=== PATIENT | female | born 1960 | race Caucasian/White ===

== ENCOUNTER 2024-05-04 19:46 | Emergency (ER) | payer BC, SELFPAY ==
[2024-05-04 19:51] VITALS: BP 164/92
[2024-05-04 20:18] LABS: % Basophils 0.5 % (0-2); % Immature Granulocytes 0.2 % (0-0.5); % Lymphocytes 40.4 % (20.5-51.1); % Monocytes 7.7 % (1.7-9.3); % Neutrophils 50.2 % (42.2-75.2); Absolute Basophils 0.1 10^3/uL (0-0.2); Absolute Eosinophils 0.1 10^3/uL (0-0.7); Absolute Lymphocytes 3.7 10^3/uL (1.2-3.4); Absolute Monocytes 0.7 10^3/uL (0.1-0.6); Absolute Neutrophils 4.6 10^3/uL (1.4-6.5); Hemoglobin 13.5 g/dL (12.0-16.0); Mean Corp Hgb Conc. 33.8 g/dL (33.0-37.0); Mean Corpuscular Hgb 28.9 pg (27.0-31.0); Mean Corpuscular Volume 85.7 fL (81.0-99.0); Mean Platelet Volume 9.7 fL (7.4-10.4); Nucleated Red Blood Cells % 0 %; Platelet Count 234 10^3/uL (130-400); Red Blood Cell Count 4.67 10^6/uL (4.20-5.40); Urine Albumin Negative (Neg - Trace); Urine Bilirubin Negative (Negative); Urine Character Clear (Clear); Urine Color Yellow; Urine Glucose Negative (Negative); Urine Ketone Negative (Negative); Urine Leukocyte Negative (Negative); Urine Nitrite Negative (Negative); Urine Occult Blood Negative (Negative); Urine Specific Gravity 1.005 (<1.030); Urine Urobilinogen Negative (Neg - 1+); White Blood Cell Count 9.3 10^3/uL (4.8-10.8)
[2024-05-04 21:07] VITALS: BP 153/81
[2024-05-04 21:25] LABS: ALT (SGPT) 12 U/L (0-35); AST (SGOT) 21 U/L (14-36); Albumin 3.9 g/dl (3.5-5.0); Alkaline Phosphatase 66 U/L (38-126); Blood Urea Nitrogen 19 mg/dl (7-17); Calcium 9.4 mg/dl (8.4-10.2); Carbon Dioxide 27 mmol/L (22-30); Chloride 104 mmol/L (98-107); Glucose 94 mg/dl (70-99); Potassium 3.6 mmol/L (3.5-5.1); Sodium 138 mmol/L (135-145); Total Bilirubin 0.6 mg/dl (0.2-1.3); Total Protein 6.6 g/dl (6.3-8.2); eGFR > 60.00
--- NOTE | 2024-05-04 22:16 | ED.GENMED ---
History of Present Illness
General
Chief Complaint: Abdominal Pain
Source: patient
Time Seen by Provider: 05/04/24 21:55
Nursing documentation reviewed up to this point in time: agreed with
History of Present Illness
History of Present Illness:
This a pleasant 63-year-old female who presents with lower abdominal pain. Approximately 10 days ago she saw her primary care provider, who recommended that she start nitrofurantoin. She states that the urinalysis looked clean and they did not get
cultures, so she did not start taking the antibiotic. Her symptoms worsened approximately 3 days ago so she started taking the antibiotic then. She did have ultrasound of the pelvis performed and brought the results which are scanned into the
chart. Denies fever, chills, nausea or vomiting. Reports no chest pain or shortness of breath. She is postmenopausal and has not had any vaginal bleeding or discharge. Denies previous abdominal surgeries.
Vital signs are stable. Patient not hypoxic
Nursing note reviewed. I agree with nursing documentation up to this point in time.
Home Meds and allergies reviewed.
NUMBER AND COMPLEXITY OF PROBLEMS ADDRESSED AT THE ENCOUNTER
� Chronic conditions affecting care: Atrial fibrillation, hypertension, hyperlipidemia, anxiety
, Endometrial polyp
� Acute Exacerbation and/or Progression of Chronic Illness: Endometrial polyp
� Differential Diagnosis includes: Appendicitis, diverticulitis, UTI, polyp
AMOUNT AND/OR COMPLEXITY OF DATA TO BE REVIEWED AND ANALYZED
I performed an independent evaluation of the following and my interpretation is:
EKG:
CT:
X-rays:
Ultrasound:
Laboratory Studies:
Other:
Review of other/old records: Ultrasound from 04/28/2024 at an outside hospital showed possible 9 mm endometrial polyp, interval increase in the size of the multilocular right ovarian cystic lesion
Clinical information was obtained by an independent historian:
Prescriptions/Medications Considered but not given:
Further testing considered but not performed:
RISK OF COMPLICATIONS AND/OR MORBIDITY OR MORTALITY OF PATIENT MANAGEMENT
Social determinants of health affecting care: Good Social Support
Discussion with other providers:
Escalation of care including admission/observation vs risk of discharge considered:
CRITICAL CARE NOTE:
Total Time (exclusive of procedures):
Update:
Past History
Past History
ED Past Medical History: Other (GERD, colon polyps, abdominal pain)
ED Past Surgical History: Negative Bowel resection or Cholecystectomy
Social History
Tobacco: Non-smoker
Alcohol: None
Drug: None
Personal:
Living: with family
Employment: Not employed
Review of Systems
Review of Systems
Allergies reviewed?: Yes
All Other Systems: ROS reviewed and negative except as documented in HPI and ROS
Constitutional: Reports no symptoms
EENT: Reports no symptoms
Respiratory: Reports no symptoms
Cardiac: Reports no symptoms
ABD/GI: Reports no symptoms
: Reports no symptoms
Musculoskeletal: Reports no symptoms
Skin: Reports no symptoms
Neurological: Reports no symptoms
Endocrine: Reports no symptoms
Hematologic/Lymphatic: Reports no symptoms
Psychiatric: Reports no symptoms
Phy Exam
General Physical Exam
General Presentation: well appearing and no apparent distress
General Skin: warm and dry
General Habitus: normal
General Mental: alert
General Hydration: appears well hydrated
ENT Exam
ENT Exam: EOMI, pharynx normal, neck supple and normocephalic
Eye Exam
Eye Exam: PERRL, cornea clear and conjunctiva normal
Cardiovascular Exam
Cardiovascular Exam: regular rate/rhythm, no edema, no murmur and normal peripheral pulses
Pulmonary Exam
Pulmonary Exam: lungs clear, no respiratory distress, no rales, no crackles, no rhonchi, no stridor, no wheezing and no cough
Gastrointestinal Exam
Gastrointestinal Exam: non tender, soft, no organomegaly, no pulsatile mass and non distended
Palpation: right lower quadrant: Minimal tenderness
Neurological Exam
Neurological Exam: alert, oriented x3, no motor deficits and speech normal
Musculoskeletal Exam
Musculoskeletal Exam: full ROM and no edema
Skin Exam
Skin Exam: normal color, warm/dry, no rash and no petechia
Psychiatric Exam
Psychiatric Exam: normal mood/affect
Course
Orders/Labs/Results
Orders:
Orders
05/04/24 20:07
Complete Blood Count/With Diff Urgent
Urinalysis Urgent
Date Specimen was Collected: 05/04/24
Time Specimen was Collected: 19:57
05/04/24 21:05
Comprehensive Metabolic Panel Urgent
05/04/24 22:07
CT Abd/pelvis W Iv Cont Urgent
Comment:
Reason For Exam: lower abd pain, rlq pain
05/05/24 00:42
Lisinopril [Zestril] 10 mg .ROUTE .STK-MED ONE
05/05/24 00:43
Lisinopril [Zestril] 10 mg PO NOW STA
Abnormal Lab Results
05/04/24 05/04/24
20:07 21:05
Absolute Lymphs (auto) 3.7 H 10^3/uL
(1.2-3.4)
Absolute Monos (auto) 0.7 H 10^3/uL
(0.1-0.6)
BUN 19 H mg/dl
(7-17)
05/04/24 20:07
05/04/24 21:05
Vital Signs
Initial and Last Documented VS:
Initial Vital Signs
Temp Pulse Resp BP Pulse Ox
98.7 F 62 22 164/92 96
05/04/24 19:51 05/04/24 19:51 05/04/24 19:51 05/04/24 19:51 05/04/24 19:51
Last Documented Vital Signs
Temp Pulse Resp BP Pulse Ox
98.7 F 62 22 143/67 97
05/04/24 19:51 05/04/24 19:51 05/04/24 19:51 05/05/24 01:00 05/05/24 01:00
*Critical Care Note
Total Time (30-74mins, 75-104mins- exclusive of procedures): Not Applicable
Update Note
Update Note:
Right renal cysts. No hydronephrosis or pyelonephritis. Duplicated right renal collecting system.
2 mm calcification in the right hemipelvis near the UVJ. A nonobstructing distal ureteral calculus cannot be excluded and could be considered in the appropriate clinical setting.
Unremarkable urinary bladder.
Stable tiny low-attenuation lesions in the liver.
No bowel obstruction, colitis, or diverticulitis.
3 cm right adnexal cystic lesion, slightly larger than on the prior study. Recommend follow-up with pelvic ultrasound for further characterization if this has not been previously done. Unremarkable left ovary.
Degenerative disc disease and facet arthrosis in the lower lumbar spine.
I did discuss CAT scan findings with patient. She understands that there is a possibility of a nonobstructing distal ureteral calculus. I will treat her for such. She says she did have hematuria earlier in the week. She will receive a copy of
the CAT scan on CD along with the preliminary results of the reading. Patient has an appointment with urology scheduled. She also has MRIs scheduled. Patient being discharged in improved condition.
ED Attending Note
-
Portions of this chart may have been created with voice recognition software.� Occasional wrong word or��sound alike� substitutions may have occurred due to the inherent limitations of voice recognition software.
Discharge Plan
Departure
Patient Disposition: Home (Routine Discharge)
Date of Disposition: 05/05/24
Time of Disposition: 01:08
Patient with high blood pressure during this ER visit?: Yes
Condition: Good
Discharge Problem:
Abdominal pain, Calculus, ureteral
Instructions: Kidney Stones (DC), How to Strain Your Urine, Abdominal Pain, BLOOD PRESSURE
Prescriptions:
New
tamsulosin [Flomax] 0.4 mg Capsule
0.4 mg PO DAILY Qty: 7 0RF
diclofenac sodium 75 mg tablet,delayed release (DR/EC)
75 mg PO BID Qty: 10 0RF
No Action
ciprofloxacin HCl [Cipro] 500 mg tablet
500 mg PO BID Qty: 6 0RF
metronidazole 500 mg tablet
500 mg PO TID Qty: 9 0RF
Referrals:
Benjamin Jarrell, DO [Family Provider] -
Activity Restrictions/Additional Instructions:
As discussed, you may have a kidney stone. Please keep your follow-up appointment with urology and keep the appointments for the MRI as you have previously ordered. Strain all urine. Please return to the emergency department with changing or
worsening of symptoms. [Your prescriptions were sent electronically to the pharmacy that you specified.]
It was a pleasure meeting you and taking part in your care. We hope for your continued healing and wellness.
Please read discharge instructions in their entirety. However, they are for general education and may not describe your exact diagnosis at discharge. Information on your ER visit and medical conditions were discussed with you along with appropriate
follow up information...
If indicated, please take your medications as instructed and indicated on discharge paperwork.
Please schedule a follow up appointment as directed. Call to schedule an appointment
Please return to the emergency department with ANY change in, persisting, or worsening of symptoms. If any of your symptoms do not improve, or persist, or become more severe within 6-12 hours, please return to the emergency department for further
care.
Please return to the emergency department if you develop a headache, neck pain/stiffness, fever greater than 100.4F, chest pain, shortness of breath, persistent nausea, vomiting, slurred speech, difficulty walking, numbness/tingling, weakness, signs
of infection or any other symptoms that are worrisome to you.
If you have any questions or concerns please do not hesitate to call the Hospital at or E-mail me directly at [email or web address]
Interventions
Interventions:
*Risk Screen - Suicide Last Done: 05/04/24 19:51
*General Assessment Last Done: 05/04/24 21:29
*Neglect/Abuse Screening Last Done: 05/04/24 19:51
ED- Fall Risk Assessment Last Done: 05/04/24 21:29
*ED COVID-19 Vaccine History Last Done: 05/04/24 21:29
*Nursing Disposition Last Done: 05/05/24 01:17
QW-Hcpjqp-Yfkwosfszq Assessment Last Done: 05/04/24 21:10
Discharge Date and Time
Discharge Date/Time: 05/05/24 01:17
Print Language: SINHALA
[2024-05-04 23:53] VITALS: BP 178/83
[2024-05-05] VITALS: BP 149/79
[2024-05-05 00:44] VITALS: BP 147/82
[2024-05-05] MEDS: ZESTRIL 10 MG PO (00:44)
[2024-05-05 01:00] VITALS: BP 143/67
== END 2024-05-05 01:17 | disposition home or self-care (01) ==
LOC: EMR 19:46
PROVIDERS: Emergency Medicine; EMERGENCY PHYSICIAN Student in an Organized Health Care Education/Training Program; FAMILY PHYSICIAN Family Medicine
DX: R10.30 Lower abdominal pain, unspecified (principal); N20.1 Calculus of ureter; I48.91 Unspecified atrial fibrillation; I10 Essential (primary) hypertension; E78.00 Pure hypercholesterolemia, unspecified; F41.9 Anxiety disorder, unspecified; K21.9 Gastro-esophageal reflux disease without esophagitis; Z87.19 Personal history of other diseases of the digestive system; Z90.49 Acquired absence of other specified parts of digestive tract
CPT/HCPCS: 99284; 74177; 80053; 81003; 85025; Q9967

== ENCOUNTER → 2024-07-07 06:24 | Day surgery (SDC) | payer BC, SELFPAY | LOC: GI 06:24 | PROVIDERS: ATTENDING PHYSICIAN Internal Medicine Gastroenterology | DX: R19.4 Change in bowel habit (principal); K64.8 Other hemorrhoids; K62.89 Other specified diseases of anus and rectum | CPT/HCPCS: 45330 ==

== ENCOUNTER 2025-01-09 16:44 | Emergency (ER) | payer BC, SELFPAY ==
[2025-01-09 16:55] VITALS: BP 142/81
--- NOTE | 2025-01-09 17:57 | ED.GENMED ---
History of Present Illness
General
Chief Complaint: Abdominal Pain
Source: patient
Exam Limitations: none
Time Seen by Provider: 01/09/25 17:33
History of Present Illness
History of Present Illness:
64yoF with a history of hypertension, hyperlipidemia, GERD, and 'underactive gallbladder' presenting for evaluation of abdominal pain x 1 week. She became sick about 10 days ago with flu-like symptoms and body aches. Those symptoms seemed to improve
but she started to experience sharp pain in her LUQ about a week ago. Pain radiates to the L flank. Pain is worse with eating. She was seen by her PCP last week for her symptoms and was started on azithromycin and is currently on day 01/23. Bowel
movements have been more frequent, she is having about 3 soft BMs daily. She denies any fevers, vomiting, diarrhea, constipation, dysuria, chest pain, shortness of breath, pleuritic pain.
Past History
Past History
ED Past Medical History: Other (GERD, colon polyps, abdominal pain)
ED Past Surgical History: Negative Bowel resection or Cholecystectomy
Social History
Tobacco: Non-smoker
Alcohol: None
Drug: None
Personal:
Living: with family
Employment: Not employed
Phy Exam
General Physical Exam
General Presentation: well appearing and no apparent distress
General age: appears stated age
General Skin: warm and dry
General Habitus: normal
General Mental: alert
ENT Exam
ENT Exam: normocephalic
Cardiovascular Exam
Cardiovascular Exam: regular rate/rhythm and no murmur
Pulmonary Exam
Pulmonary Exam: lungs clear, no respiratory distress, no rales, no crackles, no rhonchi and no wheezing
Gastrointestinal Exam
Gastrointestinal Exam: soft, non distended and other (+Tenderness in epigastrium and LUQ. Abdomen soft, non-distended. No rebound or guarding. No CVA tenderness. No visualized rash/skin changes.)
Neurological Exam
Neurological Exam: alert
Alvarez Coma Scale
Eye Opening: Spontaneous
Verbal Response: Oriented
Motor Response: Obeys Commands
GCS Total Score: 15
Skin Exam
Skin Exam: normal color and warm/dry
Psychiatric Exam
Psychiatric Exam: normal mood/affect
Course
Orders/Labs/Results
Orders:
Orders
01/09/25 17:56
Electrocardiogram (*1) Urgent
Reason for Study: Abdominal Pain
EKG- Treatment ONCE
0.9% Sodium Chloride 500 ml [Nss] 500 ml IV BOLUS
01/09/25 17:57
CT Abd/pelvis W Iv Cont Urgent
Comment:
Reason For Exam: LUQ pain, L flank pain
01/09/25 18:11
Complete Blood Count/With Diff Urgent
Comprehensive Metabolic Panel Urgent
Lipase Urgent
Troponin I Urgent
01/09/25 18:29
Acetaminophen [Tylenol] 1,000 mg PO NOW STA
01/09/25 18:54
Urinalysis Reflex To Culture Urgent
Date Specimen was Collected: 01/09/25
Time Specimen was Collected: 18:35
Urine Microscopic Reflex Cult Urgent
Abnormal Lab Results
01/09/25 01/09/25
18:11 18:54
Glucose 101 H mg/dl
(70-99)
Ur Occult Blood Reflex 1+ A
(Negative)
01/09/25 18:11
01/09/25 18:11
Vital Signs
Initial and Last Documented VS:
Initial Vital Signs
Temp Pulse Resp BP Pulse Ox
98.2 F 70 18 142/81 97
01/09/25 16:55 01/09/25 16:55 01/09/25 16:55 01/09/25 16:55 01/09/25 16:55
Last Documented Vital Signs
Temp Pulse Resp BP Pulse Ox
98.2 F 60 20 149/71 98
01/09/25 16:55 01/09/25 20:50 01/09/25 20:50 01/09/25 20:50 01/09/25 20:50
MDM/Problems Addressed
Differential Diagnosis Includes:
64yoF here with LUQ pain radiating to L flank x 1 week. Worse after eating. Currently on azithromycin for URI. VSS. She is well-appearing in no acute distress. No signs of peritonitis on abdominal exam. No visualized rash to suggest shingles.
Differential diagnosis includes but is not limited to: Gastritis, PUD, splenomegaly, kidney stone, pyelonephritis, colitis, nonspecific abdominal pain
Initial ED plan: Check abdominal labs, troponin/EKG, UA, and CT abdomen. IV fluid bolus.
*EKG
Interpreted by ED Provider?: Yes
EKG Intrepretation Date: 01/09/25
Heart Rate: 52
Rate: bradycardiac
Rhythm: sinus
Gonzales: normal axis
Interval: normal interval
QRS Pattern: right bundle branch block (incomplete)
Ischemia: no ischemia
*Critical Care Note
Total Time (30-74mins, 75-104mins- exclusive of procedures): Not Applicable
Update Note
Update Note:
Labs overall unremarkable including normal white count, renal function, LFTs, and lipase. UA with 1+ blood without signs of infection. Patient does report a known history of hematuria and has had multiple cystoscopies in the past which have been
normal. CT abdomen negative for acute findings. Unclear etiology of symptoms. She was encouraged to follow-up with her crime scene examiner. ED return precautions discussed. Patient in agreement with plan and was discharged in stable condition.
ED Attending Note
-
Portions of this chart may have been created with voice recognition software.� Occasional wrong word or��sound alike� substitutions may have occurred due to the inherent limitations of voice recognition software.
Discharge Plan
Departure
Patient Disposition: Home (Routine Discharge)
Date of Disposition: 01/09/25
Time of Disposition: 20:47
Patient with high blood pressure during this ER visit?: Yes
Discharge Problem:
Left upper quadrant pain
Instructions: Abdominal Pain
Prescriptions:
No Action
ciprofloxacin HCl [Cipro] 500 mg tablet
500 mg PO BID Qty: 6 0RF
metronidazole 500 mg tablet
500 mg PO TID Qty: 9 0RF
tamsulosin [Flomax] 0.4 mg Capsule
0.4 mg PO DAILY Qty: 7 0RF
diclofenac sodium 75 mg tablet,delayed release (DR/EC)
75 mg PO BID Qty: 10 0RF
Referrals:
Shy Cartwright MD [Active] -
UNKNOWN - PT DOES,NOT KNOW [Family Provider] -
Activity Restrictions/Additional Instructions:
Please follow-up with your family doctor and crime scene examiner. Return to the ER with any new or worsening symptoms.
Interventions
Interventions:
*Risk Screen - Suicide Last Done: 01/09/25 16:55
*General Assessment Last Done: 01/09/25 18:13
*Neglect/Abuse Screening Last Done: 01/09/25 16:55
*ED- Fall Risk Assessment Last Done: 01/09/25 18:13
*ED COVID-19 Vaccine History Last Done: 01/09/25 16:55
*Nursing Disposition Last Done: 01/09/25 21:06
XR-Sptlzg-Biwnnqhqej Assessment Last Done: 01/09/25 18:13
Discharge Date and Time
Discharge Date/Time: 01/09/25 21:07
Print Language: TURKISH
[2025-01-09] MEDS: NSS 500 IV (18:12)
[2025-01-09 18:21] VITALS: BP 143/67
[2025-01-09 18:22] LABS: % Basophils 0.7 % (0-2); % Immature Granulocytes 0.1 % (0-0.5); % Lymphocytes 40.9 % (20.5-51.1); % Monocytes 6.2 % (1.7-9.3); % Neutrophils 50.1 % (42.2-75.2); Absolute Basophils 0.1 10^3/uL (0-0.2); Absolute Eosinophils 0.1 10^3/uL (0-0.7); Absolute Lymphocytes 2.9 10^3/uL (1.2-3.4); Absolute Monocytes 0.4 10^3/uL (0.1-0.6); Absolute Neutrophils 3.6 10^3/uL (1.4-6.5); Hemoglobin 13.2 g/dL (12.0-16.0); Mean Corpuscular Hgb 28.3 pg (27.0-31.0); Mean Corpuscular Volume 85.8 fL (81.0-99.0); Mean Platelet Volume 9.1 fL (7.4-10.4); Nucleated Red Blood Cells % 0 %; Platelet Count 253 10^3/uL (130-400); Red Blood Cell Count 4.66 10^6/uL (4.20-5.40); White Blood Cell Count 7.1 10^3/uL (4.8-10.8)
[2025-01-09] MEDS: TYLENOL 1000 MG PO (18:31)
[2025-01-09 18:37] LABS: ALT (SGPT) 13 U/L (0-35); AST (SGOT) 24 U/L (14-36); Alkaline Phosphatase 68 U/L (38-126); Blood Urea Nitrogen 15 mg/dl (7-17); Calcium 9.6 mg/dl (8.4-10.2); Carbon Dioxide 28 mmol/L (22-30); Chloride 102 mmol/L (98-107); Glucose 101 mg/dl (70-99); Lipase 193 U/L (23-300); Sodium 137 mmol/L (135-145); Total Bilirubin 0.6 mg/dl (0.2-1.3); Total Protein 6.9 g/dl (6.3-8.2); eGFR > 60.00
[2025-01-09 18:47] LABS: Troponin I < 0.012 ng/ml
[2025-01-09 18:57] VITALS: BP 134/72
[2025-01-09 19:00] VITALS: BP 133/65
[2025-01-09 19:05] LABS: Urine Albumin Negative (Neg - Trace); Urine Bilirubin Negative (Negative); Urine Character Clear (Clear); Urine Color Yellow; Urine Glucose Negative (Negative); Urine Ketone Negative (Negative); Urine Leukocyte Negative (Negative); Urine Nitrite Negative (Negative); Urine Occult Blood 1+ (Negative); Urine Specific Gravity 1.005 (<1.030); Urine Urobilinogen Negative (Neg - 1+)
[2025-01-09 19:17] LABS: Urine Calcium Oxalate Crystals Present; Urine Red Blood Cell None Seen /HPF (0-2); Urine Squamous Cell None seen /LPF (Few); Urine White Cell None Seen /HPF (0-5)
[2025-01-09 20:50] VITALS: BP 149/71
== END 2025-01-09 21:07 | disposition home or self-care (01) ==
LOC: EMR 16:44
PROVIDERS: Physician Assistant; EMERGENCY PHYSICIAN Emergency Medicine
DX: R10.12 Left upper quadrant pain (principal); I10 Essential (primary) hypertension; E78.5 Hyperlipidemia, unspecified; K21.9 Gastro-esophageal reflux disease without esophagitis; Z86.0100 Personal history of colon polyps, unspecified; Z90.49 Acquired absence of other specified parts of digestive tract
CPT/HCPCS: 99284; 96360; 74177; 80053; 81003; 81015; 83690; 84484; 85025; 93005; Q9967

== ENCOUNTER 2025-05-31 09:56 | Emergency (ER) | payer BC, SELFPAY ==
[2025-05-31 10:03] VITALS: BP 144/79
[2025-05-31 10:25] LABS: Hematocrit 42.8 % (37.0-47.0); Hemoglobin 13.9 g/dL (12.0-16.0); Mean Corp Hgb Conc. 32.5 g/dL (33.0-37.0); Mean Corpuscular Volume 87.3 fL (81.0-99.0); Nucleated Red Blood Cells % 0 %; Platelet Count 214 10^3/uL (130-400); Red Cell Dist. Width 13.0 % (11.5-14.5)
[2025-05-31 10:54] LABS: ALT (SGPT) 12 U/L (0-35); AST (SGOT) 19 U/L (14-36); Albumin 4.1 g/dl (3.5-5.0); Alkaline Phosphatase 52 U/L (38-126); Blood Urea Nitrogen 14 mg/dl (7-17); Calcium 9.6 mg/dl (8.4-10.2); Carbon Dioxide 29 mmol/L (22-30); Chloride 106 mmol/L (98-107); Glucose 110 mg/dl (70-99); Lipase 86 U/L (23-300); Potassium 4.3 mmol/L (3.5-5.1); Sodium 140 mmol/L (135-145); Total Protein 7.1 g/dl (6.3-8.2); eGFR > 60.00
[2025-05-31 12:44] VITALS: BP 162/75
--- NOTE | 2025-05-31 12:50 | ED.GENMED ---
History of Present Illness
General
Chief Complaint: Abdominal Symptoms
Source: patient
Time Seen by Provider: 05/31/25 12:23
History of Present Illness
History of Present Illness:
64-year-old female with past medical history of hypertension, hyperlipidemia and GERD presenting to the emergency department for evaluation of multiple symptoms that been occurring over the last few days including mild headache, GI upset and upper
abdominal pain that all started shortly after she had her first dose of Repatha which she is taking for hyperlipidemia. Patient states that initially after the first few days she felt okay but about 4 5 days ago started having the abdominal upset
and states now when she eats or drinks anything feels like she needs to have diarrhea and has been going to the bathroom more frequently. no fevers, chills, rigors. No known sick contacts, recent travel or recent antibiotics. Patient notes no
other URI-like symptoms. She did take a COVID and flu test at home which were both negative. Patient was in contact with her cardiology team at [facility] who is the one who initiated her on the medications and they recommended she come to the ER for
further evaluate.
Past History
Past History
ED Past Medical History: GERD, HTN, Hypercholesterolemia and Psychiatric
ED Past Surgical History: Negative Bowel resection or Cholecystectomy
Social History
Tobacco: Non-smoker
Alcohol: None
Drug: None
Personal:
Living: with family
Employment: Not employed
Review of Systems
Review of Systems
All Other Systems: ROS reviewed and negative except as documented in HPI and ROS
Phy Exam
Physical Exam
Physical Exam:
GENERAL: Alert , in no apparent distress, pleasant and overall well-appearing
EYE: clear conjunctiva b/l
HEAD: NCAT
ENT: o/p clr, mmm.
CARDIAC: Regular rate and rhythm .
LUNGS: Clear breath sounds bilaterally, no acute respiratory distress, no wheezes/rales/rhonchi
ABDOMEN: Soft, without focal tenderness, no r/g, no cvat, negative Castillo sign, no tenderness at McBurney's point
NEUROLOGICAL: Alert and oriented
SKIN: Warm and dry, skin intact.
MUSCULOSKELETAL: well perfused.
PSYCH: Normal and appropriate interaction.
Scores
Heart Failure Risk
Heart Failure Risk Score: Not Applicable
Heart Score for Chest Pain Patients
STEMI patient?: Not applicable
Withdrawal Assessment of Alcohol
Withdrawal Assessment Completed?: Not applicable
Course
Orders/Labs/Results
Orders:
Orders
05/31/25 10:12
Complete Blood Count/With Diff Urgent
Comprehensive Metabolic Panel Urgent
Lipase Urgent
05/31/25 12:36
CR Abdomen - 1 View Urgent
Comment:
Reason For Exam: upper abdominal pain
05/31/25 12:43
0.9% Sodium Chloride 1000 ml [Nss] 1,000 ml IV BOLUS
05/31/25 12:55
STOOL [C difficile Antigen & Toxins] Urgent
MYRNA Source: Feces/Stool
Specimen Description:
Date Specimen was Collected: 05/31/25
Time Specimen was Collected: 12:51
Stool Culture Urgent
MYRNA Source: Feces/Stool
Specimen Description:
Date Specimen was Collected: 05/31/25
Time Specimen was Collected: 12:51
Abnormal Lab Results
05/31/25
10:12
WBC 4.6 L 10^3/uL
(4.8-10.8)
MCHC 32.5 L g/dL
(33.0-37.0)
Monocytes % 12.0 H %
(1.7-9.3)
Glucose 110 H mg/dl
(70-99)
05/31/25 10:12
05/31/25 10:12
Vital Signs
Initial and Last Documented VS:
Initial Vital Signs
Temp Pulse Resp BP Pulse Ox
98.6 F 76 16 144/79 99
05/31/25 10:03 05/31/25 10:03 05/31/25 10:03 05/31/25 10:03 05/31/25 10:03
Last Documented Vital Signs
Temp Pulse Resp BP Pulse Ox
98.6 F 76 16 162/75 99
05/31/25 10:03 05/31/25 10:03 05/31/25 10:03 05/31/25 12:44 05/31/25 12:56
MDM/Problems Addressed
Differential Diagnosis Includes:
Medication side effect
Colitis
Gastroenteritis
Viral syndrome
Electrolyte derangement
Pancreatitis
Cholelithiasis/cholecystitis
Peptic ulcer disease
H. pylori
MDM/Problems Addressed:
64-year-old female presenting to the ER for evaluation of abdominal discomfort and diarrhea over the last few days, patient recently started on new medication for cholesterol and believes it could be related. She called her cardiology team and was
recommended to come to the ER for evaluation. Overall patient is very well-appearing, hemodynamically stable, afebrile and in no acute distress. Her abdomen is soft and without any focal tenderness. Labs have been initiated on arrival which do
show a very mild leukopenia but is otherwise unremarkable and reassuring. Will attempt to obtain stool studies given the reported frequent diarrhea. X-ray of the abdomen ordered. I did consider CT imaging however given patient's overall
reassuring exam combined with reassuring vital signs and labs I do elect to defer CT at this time and patient is in agreement.
*Pulse Oximetry
SaO2: 99
Oxygen Mode of Delivery: Room air
Patient hypoxic: no
*Critical Care Note
Total Time (30-74mins, 75-104mins- exclusive of procedures): Not Applicable
Data Reviewed
Review of Other/Old Records Reveals: Labs
Patient Management
Escalation/DeEscalation of care consider admission/obs:
Patient C. difficile study is negative. She arranged for follow-up with her primary care provider for tomorrow. She remains hemodynamically stable and overall well-appearing. At this time I do think it is reasonable for patient to be discharged
home. Will hold off on any antibiotics until further culture studies are known. Patient aware of return precautions to the ER.
ED Attending Note
-
Portions of this chart may have been created with voice recognition software.� Occasional wrong word or��sound alike� substitutions may have occurred due to the inherent limitations of voice recognition software.
Discharge Plan
Departure
Patient Disposition: Home (Routine Discharge)
Date of Disposition: 05/31/25
Time of Disposition: 14:15
Patient with high blood pressure during this ER visit?: Yes
Discharge Problem:
Diarrhea
Instructions: Diarrhea in teens and adults
Prescriptions:
No Action
ciprofloxacin HCl [Cipro] 500 mg tablet
500 mg PO BID Qty: 6 0RF
metronidazole 500 mg tablet
500 mg PO TID Qty: 9 0RF
tamsulosin [Flomax] 0.4 mg Capsule
0.4 mg PO DAILY Qty: 7 0RF
diclofenac sodium 75 mg tablet,delayed release (DR/EC)
75 mg PO BID Qty: 10 0RF
Referrals:
Shayne Tijerina CRNP [Family Provider, General]
Interventions
Interventions:
*Risk Screen - Suicide Last Done: 05/31/25 11:56
*General Assessment Last Done: 05/31/25 11:56
*Neglect/Abuse Screening Last Done: 05/31/25 11:56
*ED- Fall Risk Assessment Last Done: 05/31/25 11:56
*ED COVID-19 Vaccine History Last Done: 05/31/25 11:56
*Nursing Disposition Last Done: 05/31/25 14:22
UU-Ugdyxq-Bevejzzqyx Assessment Last Done: 05/31/25 11:56
Discharge Date and Time
Discharge Date/Time: 05/31/25 14:23
Print Language: KAZAKH
[2025-05-31] MEDS: NSS 1000 IV (12:55)
== END 2025-05-31 14:23 | disposition home or self-care (01) ==
LOC: EMR 09:56
PROVIDERS: EMERGENCY PHYSICIAN Student in an Organized Health Care Education/Training Program; FAMILY PHYSICIAN Nurse Practitioner Gerontology
DX: R19.7 Diarrhea, unspecified (principal); I10 Essential (primary) hypertension; E78.00 Pure hypercholesterolemia, unspecified; Z90.49 Acquired absence of other specified parts of digestive tract; K21.9 Gastro-esophageal reflux disease without esophagitis
CPT/HCPCS: 99283; 96360; 74018; 80053; 83690; 85025; 87045; 87046; 87077; 87324; 87427; 87449